=== PATIENT | female | born 1975 | race Caucasian/White ===

== ENCOUNTER 2017-08-22 17:33 | Emergency (ER) | payer OTHER ==
[~2017-08-22] VITALS: Ht 162.6 cm; Wt 52.2 kg
[2017-08-22 19:34] VITALS: BP 97/57
== END 2017-08-22 19:35 | disposition home or self-care (01) ==
LOC: ER 17:33
DX: S61.012A Laceration without foreign body of left thumb without damage to nail, initial encounter (principal); W45.8XXA Other foreign body or object entering through skin, initial encounter; Y93.89 Activity, other specified; Y92.89 Other specified places as the place of occurrence of the external cause; Y99.8 Other external cause status

== ENCOUNTER 2018-02-24 11:04 | Emergency (ER) | payer OTHER ==
[~2018-02-24] VITALS: Ht 162.6 cm; Wt 52.2 kg
[2018-02-24] MEDS ORDERED: AUGMENTIN 500-1 EACH PO (11:37)
[2018-02-24] MEDS ORDERED: TESSALON PERLE100 MG PO (11:37)
[2018-02-24 11:42] VITALS: BP 127/80
== END 2018-02-24 12:07 | disposition home or self-care (01) ==
LOC: ER 11:04
DX: J20.9 Acute bronchitis, unspecified (principal); R04.2 Hemoptysis; F17.210 Nicotine dependence, cigarettes, uncomplicated; Z88.8 Allergy status to other drugs, medicaments and biological substances